=== PATIENT | female | born 2000 | race Two or more races ===

== ENCOUNTER 2023-06-04 00:10 | Emergency (ER) | payer MEDICAID, SELFPAY ==
[~2023-06-04] VITALS: Ht 154.9 cm; Wt 133.8 kg
[2023-06-04 00:11] VITALS: BP 121/66; TEMP 98.2; O2SAT 100
[2023-06-04 07:43] LABS: GC DNA AMPLIFICATION NEGATIVE (NEGATIVE)
[2023-06-04] MEDS ORDERED: MACR100C43 PO ×2 (07:49→08:00)
== END 2023-06-04 08:10 | disposition home or self-care (01) ==
LOC: M ED 00:10
DX: O23.92 Unspecified genitourinary tract infection in pregnancy, second trimester (principal); R30.0 Dysuria

== ENCOUNTER → 2023-06-30 | Outpatient (CLI) | payer MEDICAID ==
[~2023-06-30] MED LIST: MACR100C43 PO
== END ==
LOC: M WHC 11:30
PROVIDERS: ATTEND Advanced Practice Midwife
DX: Z34.82 Encounter for supervision of other normal pregnancy, second trimester (principal); Z3A.19 19 weeks gestation of pregnancy

== ENCOUNTER → 2023-07-14 | Outpatient (REF) | payer MEDICAID | LOC: M PLALAB 10:07 | PROVIDERS: ATTEND Advanced Practice Midwife | DX: Z34.02 Encounter for supervision of normal first pregnancy, second trimester (principal) ==

== ENCOUNTER 2023-07-25 07:31 | Outpatient (CLI) | payer MEDICAID ==
[~2023-07-25] VITALS: Ht 154.9 cm; Wt 67.8 kg
[2023-07-25 07:51] VITALS: BP 112/60
[2023-07-25] MEDS ORDERED: MULTTAB20 PO (07:53)
[2023-07-25] MEDS ORDERED: ASPI81CH33 PO (07:53)
[2023-07-25] MEDS ORDERED: HOME MED LIST COMPLETE! XX SCH (07:55)
[2023-07-25 10:18] LABS: ALKALINE PHOSPHATASE 53 U/L (46-116); ALT/SGPT 17 U/L (7.0-40); AST/SGOT 15 U/L (<34); BILIRUBIN,DIRECT < 0.1 MG/DL (<0.4); BILIRUBIN,TOTAL 0.3 MG/DL (0.3-1.2); TOTAL PROTEIN 6.4 G/DL (5.7-8.2)
== END 2023-07-25 09:30 | disposition home or self-care (01) ==
LOC: M LDO 07:31
PROVIDERS: ATTEND Obstetrics & Gynecology
DX: O26.892 Other specified pregnancy related conditions, second trimester (principal); R10.2 Pelvic and perineal pain; Z3A.22 22 weeks gestation of pregnancy
CPT/HCPCS: 36415; 59025; 80076; 81001; 82239; G0463

== ENCOUNTER → 2023-08-17 | Outpatient (CLI) | payer OTHER ==
[~2023-08-17] MED LIST changes: +ASPI81CH33 PO; +MULTTAB20 PO
[2023-08-17 13:28] LABS: HEMATOCRIT 28.9 % (36.0-47.0); HEMOGLOBIN 9.5 g/dl (12.0-15.5); MEAN CORPUSCULAR HEMOGLOBIN 26.2 pg (27.0-33.0); MEAN CORPUSCULAR HGB CONC 32.9 g/dl (32.0-36.5); MEAN CORPUSCULAR VOLUME 79.8 fl (80.0-96.0); PLATELET COUNT, AUTOMATED 144 10^3/uL (150-450); RED BLOOD COUNT 3.62 10^6/uL (4.00-5.40)
[2023-08-17 14:09] LABS: CHLAMYDIA DNA AMPLIFICATION NEGATIVE (NEGATIVE); GC DNA AMPLIFICATION NEGATIVE (NEGATIVE)
== END ==
LOC: M LAB 10:18
PROVIDERS: ATTEND Advanced Practice Midwife
DX: Z34.02 Encounter for supervision of normal first pregnancy, second trimester (principal); Z36.89 Encounter for other specified antenatal screening; Z3A.00 Weeks of gestation of pregnancy not specified

== ENCOUNTER 2023-08-30 12:19 | Outpatient (CLI) | payer OTHER, MEDICAID ==
[~2023-08-30] VITALS: Ht 154.9 cm; Wt 71.3 kg
[2023-08-30] MEDS ORDERED: HOME MED LIST COMPLETE! XX SCH (13:00)
[2023-08-30] MEDS ORDERED: MAGNESIUM CITRATE 300ML BTL PO ONE (13:20)
== END 2023-08-30 14:05 | disposition home or self-care (01) ==
LOC: M LDO 12:19
PROVIDERS: ATTEND Obstetrics & Gynecology
DX: O26.892 Other specified pregnancy related conditions, second trimester (principal); R10.30 Lower abdominal pain, unspecified; K59.00 Constipation, unspecified; O99.012 Anemia complicating pregnancy, second trimester; D50.9 Iron deficiency anemia, unspecified; Z3A.27 27 weeks gestation of pregnancy; O99.612 Diseases of the digestive system complicating pregnancy, second trimester
CPT/HCPCS: 59025; G0463

== ENCOUNTER 2023-09-04 11:06 | Outpatient (CLI) | payer OTHER ==
[~2023-09-04] VITALS: Ht 154.9 cm; Wt 72.2 kg
[2023-09-04 11:25] VITALS: BP 133/60; O2SAT 96
[2023-09-04] MEDS ORDERED: IRON SUCROSE 500 MG in NS 250 ML OVER 4 HRS IV ONE (11:30)
[2023-09-04 12:15] VITALS: BP 111/71; O2SAT 96
[2023-09-04 13:15] VITALS: BP 115/63; O2SAT 99
[2023-09-04 14:15] VITALS: BP 128/66; O2SAT 97
[2023-09-04 14:30] VITALS: BP 129/56; O2SAT 98
[2023-09-04 15:46] VITALS: BP 128/60; O2SAT 97
== END 2023-09-04 16:40 | disposition home or self-care (01) ==
LOC: M INFU 11:06
PROVIDERS: ATTEND Obstetrics & Gynecology
DX: D64.9 Anemia, unspecified (principal)
CPT/HCPCS: 96365; 96366; J1756

== ENCOUNTER 2023-09-05 18:08 | Emergency (ER) | payer OTHER ==
[~2023-09-05] VITALS: Ht 154.9 cm; Wt 72.7 kg
[2023-09-05 18:20] VITALS: TEMP 98.1
[2023-09-05 18:54] LABS: BASO % 0.2 % (0.0-1.0); EOS # 0.1 10^3/uL (0.0-0.5); EOS % 0.7 % (0.0-3.0); HEMOGLOBIN 9.1 g/dl (12.0-15.5); LYMPH # 1.5 10^3/uL (1.5-5.0); LYMPH % 15.3 % (24.0-44.0); MEAN CORPUSCULAR HEMOGLOBIN 25.8 pg (27.0-33.0); MEAN CORPUSCULAR HGB CONC 33.7 g/dl (32.0-36.5); MEAN CORPUSCULAR VOLUME 76.5 fl (80.0-96.0); MONO # 0.8 10^3/uL (0.0-0.8); MONO % 8.6 % (2.0-8.0); NEUTROPHILS # 7.1 10^3/uL (1.5-8.5); NEUTROPHILS % 73.8 % (36.0-66.0); PLATELET COUNT, AUTOMATED 124 10^3/uL (150-450); RED BLOOD COUNT 3.53 10^6/uL (4.00-5.40); WHITE BLOOD COUNT 9.6 10^3/uL (4.0-10.0)
[2023-09-05 19:04] LABS: INR 1.24; PROTHROMBIN TIME 15.3 SECONDS (12.5-14.5)
[2023-09-05 19:05] LABS: PARTIAL THROMBOPLASTIN TIME 28.8 SECONDS (24.8-34.2)
[2023-09-05 19:23] LABS: URIC ACID 2.8 MG/DL (3.1-7.8)
[2023-09-05 19:25] LABS: ALBUMIN 2.7 G/DL (3.2-5.2); ALKALINE PHOSPHATASE 55 U/L (46-116); ALT/SGPT 14 U/L (7.0-40); AST/SGOT 15 U/L (<34); BILIRUBIN,DIRECT < 0.1 MG/DL (<0.4); BILIRUBIN,TOTAL 0.2 MG/DL (0.3-1.2); BLOOD UREA NITROGEN 7 MG/DL (9-23); CARBON DIOXIDE LEVEL 22 MMOL/L (20-31); CHLORIDE LEVEL 109 MMOL/L (98-107); CREATININE FOR GFR 0.37 MG/DL (0.55-1.30); GLOMERULAR FILTRATION RATE > 60.0 (>60); GLUCOSE, FASTING 112 MG/DL (60-100); MAGNESIUM LEVEL 1.7 MG/DL (1.8-2.4); POTASSIUM SERUM 3.7 MMOL/L (3.5-5.1); SODIUM LEVEL 140 MMOL/L (136-145)
[2023-09-05] MEDS ORDERED: ACETAMINOPHEN TAB 650MG DOSE (2X325MG) PO ONE (19:40)
[2023-09-05 19:46] LABS: APPEARANCE, URINE CLEAR (CLEAR); BACTERIA, URINE AUTO 1+ (NEGATIVE); BILIRUBIN, URINE AUTO NEGATIVE (NEGATIVE); BLOOD, URINE BLOOD NEGATIVE (NEGATIVE); COLOR, URINE YELLOW (YELLOW); GLUCOSE, URINE (UA) AUTO 2+ mg/dL (NEGATIVE); KETONE, URINE AUTO NEGATIVE (NEGATIVE); LEUKOCYTE ESTERASE, URINE AUTO NEGATIVE (NEGATIVE); NITRITE, URINE AUTO NEGATIVE (NEGATIVE); PROTEIN, URINE AUTO NEGATIVE (NEGATIVE); RBC, URINE AUTO 0 /HPF (0-3); SPECIFIC GRAVITY URINE AUTO 1.009 (1.002-1.035); SQUAMOUS EPITHELIAL CELL UR AU 2 /HPF (0-6); UROBILINOGEN, URINE AUTO 0.2 mg/dL (0.0-2.0); WBC, URINE AUTO 0 /HPF (0-3)
[2023-09-05 23:24] VITALS: BP 115/61; O2SAT 95
== END 2023-09-05 23:34 | disposition left against medical advice (07) ==
LOC: M ED 18:08
DX: M79.604 Pain in right leg (principal); Z79.82 Long term (current) use of aspirin; Z79.899 Other long term (current) drug therapy; Z53.9 Procedure and treatment not carried out, unspecified reason

== ENCOUNTER → 2023-10-02 | Outpatient (CLI) | payer OTHER | LOC: M WHC 08:44 | PROVIDERS: ATTEND Advanced Practice Midwife | DX: K83.1 Obstruction of bile duct (principal); Z3A.32 32 weeks gestation of pregnancy ==

== ENCOUNTER → 2023-10-02 | Outpatient (CLI) | payer OTHER ==
[2023-10-02 16:48] LABS: BASO % 0.4 % (0.0-1.0); EOS # 0.1 10^3/uL (0.0-0.5); EOS % 1.3 % (0.0-3.0); HEMATOCRIT 31.7 % (36.0-47.0); HEMOGLOBIN 10.8 g/dl (12.0-15.5); LYMPH # 1.7 10^3/uL (1.5-5.0); LYMPH % 18.5 % (24.0-44.0); MEAN CORPUSCULAR HEMOGLOBIN 27.1 pg (27.0-33.0); MEAN CORPUSCULAR HGB CONC 34.1 g/dl (32.0-36.5); MEAN CORPUSCULAR VOLUME 79.4 fl (80.0-96.0); MONO # 0.8 10^3/uL (0.0-0.8); MONO % 8.3 % (2.0-8.0); NEUTROPHILS # 6.4 10^3/uL (1.5-8.5); NEUTROPHILS % 70.3 % (36.0-66.0); PLATELET COUNT, AUTOMATED 113 10^3/uL (150-450); RED BLOOD COUNT 3.99 10^6/uL (4.00-5.40)
== END ==
LOC: M LAB 16:12
PROVIDERS: ATTEND Advanced Practice Midwife
DX: O99.019 Anemia complicating pregnancy, unspecified trimester (principal); Z3A.00 Weeks of gestation of pregnancy not specified

== ENCOUNTER → 2023-10-22 | Outpatient (REF) | payer OTHER, MEDICAID ==
[~2023-10-22] MED LIST changes: +URSO300C3 PO
== END ==
LOC: M SFHCWAGY 17:09
PROVIDERS: ATTEND Specialist
DX: Z36.89 Encounter for other specified antenatal screening (principal); Z3A.36 36 weeks gestation of pregnancy

== ENCOUNTER 2023-10-27 10:09 | Outpatient (CLI) | payer OTHER, MEDICAID ==
[~2023-10-27] VITALS: Ht 154.9 cm; Wt 77.0 kg
[2023-10-27] MEDS ORDERED: HOME MED LIST COMPLETE! XX SCH (10:25)
[2023-10-27 10:31] VITALS: BP 117/70
[2023-10-27] MEDS: BETAMETHASONE SOLUSPAN 6MG/ML 5ML VIAL IM STA (10:39)
== END 2023-10-27 10:45 | disposition home or self-care (01) ==
LOC: M LDO 10:09
PROVIDERS: ATTEND Obstetrics & Gynecology
DX: O99.113 Other diseases of the blood and blood-forming organs and certain disorders involving the immune mechanism complicating pregnancy, third trimester (principal); D69.6 Thrombocytopenia, unspecified; O26.643 Intrahepatic cholestasis of pregnancy, third trimester; O09.813 Supervision of pregnancy resulting from assisted reproductive technology, third trimester; O09.293 Supervision of pregnancy with other poor reproductive or obstetric history, third trimester; Z3A.36 36 weeks gestation of pregnancy
CPT/HCPCS: 96372; J0702

== ENCOUNTER → 2023-10-27 | Outpatient (CLI) | payer OTHER ==
[2023-10-27 08:11] LABS: HEMATOCRIT 32.6 % (36.0-47.0); HEMOGLOBIN 10.9 g/dl (12.0-15.5); MEAN CORPUSCULAR HEMOGLOBIN 26.5 pg (27.0-33.0); MEAN CORPUSCULAR HGB CONC 33.4 g/dl (32.0-36.5); MEAN CORPUSCULAR VOLUME 79.1 fl (80.0-96.0); PLATELET COUNT, AUTOMATED 103 10^3/uL (150-450); RED BLOOD COUNT 4.12 10^6/uL (4.00-5.40); WHITE BLOOD COUNT 10.8 10^3/uL (4.0-10.0)
== END ==
LOC: M LAB 07:29
PROVIDERS: ATTEND Specialist
DX: O99.113 Other diseases of the blood and blood-forming organs and certain disorders involving the immune mechanism complicating pregnancy, third trimester (principal)

== ENCOUNTER 2023-10-28 10:45 | Outpatient (CLI) | payer OTHER, MEDICAID ==
[~2023-10-28] VITALS: Ht 154.9 cm; Wt 76.9 kg
[2023-10-28] MEDS ORDERED: HOME MED LIST COMPLETE! XX SCH (11:05)
[2023-10-28 11:06] VITALS: BP 130/69
[2023-10-28] MEDS: BETAMETHASONE SOLUSPAN 6MG/ML 5ML VIAL IM ONE (11:11)
== END 2023-10-28 11:26 | disposition home or self-care (01) ==
LOC: M LDO 10:45
PROVIDERS: ATTEND Advanced Practice Midwife
DX: O99.113 Other diseases of the blood and blood-forming organs and certain disorders involving the immune mechanism complicating pregnancy, third trimester (principal); D69.6 Thrombocytopenia, unspecified; O26.643 Intrahepatic cholestasis of pregnancy, third trimester; O09.813 Supervision of pregnancy resulting from assisted reproductive technology, third trimester; O09.293 Supervision of pregnancy with other poor reproductive or obstetric history, third trimester; Z3A.36 36 weeks gestation of pregnancy
CPT/HCPCS: 59025; 96372; G0463; J0702

== ENCOUNTER 2023-11-03 07:30 | Inpatient (IN) | payer OTHER, MEDICAID ==
[~2023-11-03] VITALS: Ht 154.9 cm; Wt 74.5 kg
[2023-11-03] VITALS (10 sets, daily range): BP systolic 105–138; BP diastolic 55–72
[2023-11-03] MEDS ORDERED: CHOL20002 PO (08:03)
[2023-11-03] MEDS ORDERED: HOME MED LIST COMPLETE! XX SCH (08:05)
[2023-11-03] MEDS ORDERED: TRANEXAMIC ACID INJection 1,000 MG in NS 100 ML IV PRN (08:20)
[2023-11-03] MEDS ORDERED: METHYLERGONOVINE MALEATE 0.2MG/ML 1ML VIAL IM PRN (08:20)
[2023-11-03] MEDS ORDERED: OXYTOCIN INJ 10UNITS/ML 1ML VIAL IM PRN (08:20)
[2023-11-03] MEDS ORDERED: CARBOPROST TROMETHAMINE 250 MCG/ML AMP IM PRN (08:20)
[2023-11-03] MEDS ORDERED: LIDOCAINE 1% MDV 20ML VIAL INFIL PRN (08:20)
[2023-11-03] MEDS ORDERED: PENICILLIN G POTASSIUM 5 MU IV 5 MU in D5W MINI-BAG PLUS 100 ML IV STA (08:20)
[2023-11-03] MEDS ORDERED: OXYTOCIN DRIP 30 UNITS in IV 1 EA IV PRN (08:20)
[2023-11-03 08:52] LABS: HEMATOCRIT 32.6 % (36.0-47.0); HEMOGLOBIN 11.2 g/dl (12.0-15.5); MEAN CORPUSCULAR HEMOGLOBIN 26.6 pg (27.0-33.0); MEAN CORPUSCULAR HGB CONC 34.4 g/dl (32.0-36.5); MEAN CORPUSCULAR VOLUME 77.4 fl (80.0-96.0); PLATELET COUNT, AUTOMATED 101 10^3/uL (150-450); RED BLOOD COUNT 4.21 10^6/uL (4.00-5.40); WHITE BLOOD COUNT 11.5 10^3/uL (4.0-10.0)
[2023-11-03 09:47] LABS: HIV 1&2 SCREEN NEGATIVE (NEGATIVE)
[2023-11-03] MEDS: miSOPROStol 50MCG 1/2 TABLET SL SCH (10:44)
[2023-11-03] MEDS: PENICILLIN G POTASSIUM 5 MU IV 5 MU in D5W MINI-BAG PLUS 100 ML IV STA (10:44)
[2023-11-03] MEDS ORDERED: PEN G POT 3,000,000 UNIT/50 ML 3,000,000 UNIT in IV 1 EA IV SCH (12:20)
[2023-11-03] MEDS: PEN G POT 3,000,000 UNIT/50 ML 3,000,000 UNIT in IV 1 EA IV SCH (14:51)
[2023-11-03] MEDS ORDERED: NALOXONE INJ 0.4MG/1ML VIAL IV PRN (17:45)
[2023-11-03] MEDS ORDERED: EPIDURAL/PCA KEYS XX PRN (17:45)
[2023-11-03] MEDS ORDERED: ONDANSETRON 4MG 2ML VIAL IV PRN (17:45)
[2023-11-03] MEDS ORDERED: diphenhydrAMINE 50MG/ML VIAL IV PRN (17:45)
[2023-11-03] MEDS: BUTORPHANOL 2 MG/ML 1ML VIAL IV PRN (23:36)
[2023-11-03] MEDS: PROMETHAZINE 25MG/ML 1ML VIAL IV PRN ×2 (23:36→23:48)
[2023-11-04] VITALS (62 sets, daily range): BP systolic 102–160; BP diastolic 49–85
[2023-11-04] MEDS: OXYTOCIN DRIP 30 UNITS in IV 1 EA IV SCH (09:42)
[2023-11-04] MEDS: LR 1,000 ML IV SCH (09:42)
[2023-11-04 16:08] LABS: HEMATOCRIT 35.5 % (36.0-47.0); HEMOGLOBIN 11.8 g/dl (12.0-15.5); MEAN CORPUSCULAR HGB CONC 33.2 g/dl (32.0-36.5); MEAN CORPUSCULAR VOLUME 78.2 fl (80.0-96.0); PLATELET COUNT, AUTOMATED 120 10^3/uL (150-450); RED BLOOD COUNT 4.54 10^6/uL (4.00-5.40); WHITE BLOOD COUNT 11.9 10^3/uL (4.0-10.0)
[2023-11-04] MEDS: ONDANSETRON 4MG 2ML VIAL IV ONE (16:25)
[2023-11-04] MEDS: LACTATED RINGER'S 1000 ML IV STA (17:02)
[2023-11-04] MEDS: FENTANYL/ROPIVACAINE/NACL BAG 100 ML EPIDURAL SCH (18:54)
[2023-11-04] MEDS: ePHEDrine SULFATE 25 MG/5 ML(5MG/ML) SYRINGE IVP PRN (19:18)
[2023-11-04] MEDS: LR 500 ML IV PRN (22:34)
[2023-11-05] VITALS (10 sets, daily range): BP systolic 106–125; BP diastolic 52–66; TEMP 98.6; O2SAT 97–100
[2023-11-05] MEDS: AZITHROMYCIN INJ 500 MG, VIAL MATE ADAPTER 1 EACH in NS 250 ML IV ONE (01:21)
[2023-11-05] MEDS: BICITRA 30ML SOLN UDC PO ONE (01:21)
[2023-11-05] MEDS: ceFAZolin SOD 2 GM in IV 1 EA IV ONE (01:22)
[2023-11-05] MEDS: LACTATED RINGER'S 1000 ML IV STA (01:23)
[2023-11-05] MEDS ORDERED: KETOROLAC 60MG 2ML VIAL As Ordered ONE (02:07)
[2023-11-05] MEDS ORDERED: OXYTOCIN 30UNITS IN 0.9% NaCl 500ML IV BAG As Ordered ONE (02:07)
[2023-11-05] MEDS ORDERED: LIDOCAINE 2% W/EPINEPHRINE 20ML VIAL **PRES FREE As Ordered ONE (02:07)
[2023-11-05] MEDS ORDERED: fentaNYL 100 MCG/2 ML INJECTION As Ordered ONE (02:07)
[2023-11-05] MEDS ORDERED: MORPHINE PRES-FREE INJ 10 MG/10 ML VIAL As Ordered ONE (02:07)
[2023-11-05] MEDS ORDERED: OXYTOCIN INJ 10UNITS/ML 1ML VIAL As Ordered ONE (02:18)
[2023-11-05] MEDS ORDERED: oxyCODONE 5MG TAB PO PRN ×3 (03:00→03:30)
[2023-11-05] MEDS ORDERED: DOCUSATE SODIUM 100MG CAPSULE PO PRN (03:00)
[2023-11-05] MEDS ORDERED: SIMETHICONE 80MG CHEW TAB PO PRN (03:00)
[2023-11-05] MEDS ORDERED: RHOGAM 300MCG (1500IU) INJ IM SCH (03:00)
[2023-11-05] MEDS ORDERED: COLA100C5 PO (03:11)
[2023-11-05] MEDS ORDERED: OXYC-517 PO (03:11)
[2023-11-05] MEDS ORDERED: IBUP-1022 PO (03:11)
[2023-11-05] MEDS ORDERED: ACET-683 PO (03:11)
[2023-11-05] MEDS: OXYTOCIN DRIP 30 UNITS in IV 1 EA IV SCH (03:29)
[2023-11-05] MEDS ORDERED: ONDANSETRON 4MG 2ML VIAL IV PRN (03:30)
[2023-11-05] MEDS ORDERED: diphenhydrAMINE 50MG/ML VIAL IV PRN (03:30)
[2023-11-05] MEDS: LR 1,000 ML IV SCH (03:30)
[2023-11-05] MEDS ORDERED: fentaNYL 100 MCG/2 ML INJECTION IV PRN (03:30)
[2023-11-05] MEDS ORDERED: NALOXONE INJ 0.4MG/1ML VIAL IV PRN ×2 (03:30)
[2023-11-05] MEDS ORDERED: **NOTE PATIENT COMMENT** MISC XX SCH (03:30)
[2023-11-05] MEDS: SLF 3 ML SYR IV SCH (03:30)
[2023-11-05] MEDS ORDERED: METOCLOPRAMIDE INJ 10MG/2ML VIAL IV PRN (03:30)
[2023-11-05] MEDS: ACETAMINOPHEN 500 MG TAB PO SCH (04:58)
[2023-11-05] MEDS: KETOROLAC 30 MG/ML 1ML VIAL IV SCH (07:40)
[2023-11-05] MEDS: PRENATAL VITAMINS CHEWABLE TABLET PO SCH (09:00)
[2023-11-06 02:00] VITALS: BP 102/51; O2SAT 98
[2023-11-06] MEDS: IBUPROFEN 600MG TAB PO SCH (03:53)
[2023-11-06 05:50] LABS: HEMATOCRIT 23.3 % (36.0-47.0); MEAN CORPUSCULAR HEMOGLOBIN 26.3 pg (27.0-33.0); MEAN CORPUSCULAR HGB CONC 33.5 g/dl (32.0-36.5); MEAN CORPUSCULAR VOLUME 78.5 fl (80.0-96.0); PLATELET COUNT, AUTOMATED 105 10^3/uL (150-450); RED BLOOD COUNT 2.97 10^6/uL (4.00-5.40)
[2023-11-06 05:57] LABS: HEMOGLOBIN 7.8 g/dl (12.0-15.5)
[2023-11-06 06:00] VITALS: BP 118/56; O2SAT 99
[2023-11-06 10:00] VITALS: BP 126/72; O2SAT 98
[2023-11-06 14:00] VITALS: BP 105/53; O2SAT 100
[2023-11-06 18:00] VITALS: BP 112/55; O2SAT 98
[2023-11-06 22:00] VITALS: BP 124/60; O2SAT 98
[2023-11-07 05:12] VITALS: BP 118/76; O2SAT 95
[2023-11-07] MEDS ORDERED: MEASLES,MUMPS,RUBELLA VACCINE INJ (MMR-II) SC.IMMUN ONE (09:00)
[2023-11-07 10:00] VITALS: BP 104/61; O2SAT 99
== END 2023-11-07 12:28 | disposition home or self-care (01) | DRG 540 ==
LOC: M LDI 07:30 → M OBS 11-05 04:28
PROVIDERS: ADMIT Obstetrics & Gynecology; ATTEND Obstetrics & Gynecology
PROC: 3E0P7GC Introduction of Other Therapeutic Substance into Female Reproductive, Via Natural or Artificial Opening (ICD-10-PCS; 2023-11-03)
PROC: 10D00Z1 Extraction of Products of Conception, Low, Open Approach (ICD-10-PCS; principal; 2023-11-05 01:59)
DX: O26.643 Intrahepatic cholestasis of pregnancy, third trimester (principal); O99.824 Streptococcus B carrier state complicating childbirth; Z3A.37 37 weeks gestation of pregnancy; Z79.82 Long term (current) use of aspirin; Z79.899 Other long term (current) drug therapy; O76 Abnormality in fetal heart rate and rhythm complicating labor and delivery; Z37.0 Single live birth

== ENCOUNTER → 2023-12-31 | Outpatient (REF) | payer OTHER, MEDICAID ==
[~2023-12-31] MED LIST changes: +ACET-683 PO; +CHOL20002 PO; +COLA100C5 PO; +IBUP-1022 PO; +OXYC-517 PO
== END ==
LOC: M SFHCWAGY 17:02
PROVIDERS: ATTEND Obstetrics & Gynecology
DX: R30.0 Dysuria (principal)

== ENCOUNTER → 2024-04-27 | Outpatient (REF) | LOC: M EMP 13:07 | PROVIDERS: ATTEND Family Medicine | DX: Z11.52 Encounter for screening for COVID-19 (principal) ==